=== PATIENT | female | born 1980 | race Hispanic/Latino ===

== ENCOUNTER 2018-07-13 12:36 | Emergency (ER) | payer SELFPAY ==
--- NOTE | 2018-07-13 14:39 | EDPHYS ---
Physician Documentation [facility] Name: Sandy Diggs Age: 37 yrs Sex: Female : 1980 Arrival Date: 07/13/2018 Time: 12:41 Bed 14 Private MD: None, None ED Physician Jesus Paz HPI: 07/13 14:36 This 37 yrs old Female presents to ER via Ambulatory with complaints of Sore khadijah Throat, Difficulty Swallowing. 14:36 The patient presents with sore throat. The patient describes throat pain as constant. khadijah Onset: The symptoms/episode began/occurred 1 day(s) ago. Severity of symptoms: At their worst the symptoms were moderate, in the emergency department the symptoms have improved, mildly. Modifying factors: The symptoms are alleviated by nothing, the symptoms are aggravated by swallowing, Patient's oral intake status: good. Associated signs and symptoms: The patient has no apparent associated signs or symptoms. The patient has not experienced similar symptoms in the past. 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 - Social history:: Smoking status: Patient/guardian denies using tobacco. - Ebola Screening: : Patient negative for fever greater than or equal to 101.5 degrees Fahrenheit, and additional compatible Ebola Virus Disease symptoms Patient denies exposure to infectious person Patient denies travel to an Ebola-affected area in the 21 days before illness onset No symptoms or risks identified at this time. ROS: 14:37 Constitutional: Negative for fever, chills, and weight loss, Eyes: Negative for injury, khdaijah pain, redness, and discharge, Neck: Negative for injury, pain, and swelling, Cardiovascular: Negative for chest pain, palpitations, and edema, Respiratory: Negative for shortness of breath, cough, wheezing, and pleuritic chest pain, Abdomen/GI: Negative for abdominal pain, nausea, vomiting, diarrhea, and constipation, Back: Negative for injury and pain, : Negative for injury, bleeding, discharge, and swelling, MS/Extremity: Negative for injury and deformity, Skin: Negative for injury, rash, and discoloration, Neuro: Negative for headache, weakness, numbness, tingling, and seizure, Psych: Negative for depression, anxiety, suicide ideation, homicidal ideation, and hallucinations, Allergy/Immunology: Negative for hives, rash, and allergies, Endocrine: Negative for neck swelling, polydipsia, polyuria, polyphagia, and marked weight changes, Hematologic/Lymphatic: Negative for swollen nodes, abnormal bleeding, and unusual bruising. 14:37 ENT: Positive for difficulty swallowing. Exam: 14:37 Constitutional: This is a well developed, well nourished patient who is awake, alert, khadijah and in no acute distress. Head/Face: Normocephalic, atraumatic. Eyes: Pupils equal round and reactive to light, extra-ocular motions intact. Lids and lashes normal. Conjunctiva and sclera are non-icteric and not injected. Cornea within normal limits. Periorbital areas with no swelling, redness, or edema. Neck: Trachea midline, no thyromegaly or masses palpated, and no cervical lymphadenopathy. Supple, full range of motion without nuchal rigidity, or vertebral point tenderness. No Meningismus. Chest/axilla: Normal chest wall appearance and motion. Nontender with no deformity. No lesions are appreciated. Cardiovascular: Regular rate and rhythm with a normal S1 and S2. No gallops, murmurs, or rubs. Normal PMI, no JVD. No pulse deficits. Respiratory: Lungs have equal breath sounds bilaterally, clear to auscultation and percussion. No rales, rhonchi or wheezes noted. No increased work of breathing, no retractions or nasal flaring. Abdomen/GI: Soft, non-tender, with normal bowel sounds. No distension or tympany. No guarding or rebound. No evidence of tenderness throughout. Back: No spinal tenderness. No costovertebral tenderness. Full range of motion. Skin: Warm, dry with normal turgor. Normal color with no rashes, no lesions, and no evidence of cellulitis. MS/ Extremity: Pulses equal, no cyanosis. Neurovascular intact. Full, normal range of motion. Neuro: Awake and alert, GCS 15, oriented to person, place, time, and situation. Cranial nerves II-XII grossly intact. Motor strength 5/5 in all extremities. Sensory grossly intact. Cerebellar exam normal. Normal gait. Psych: Awake, alert, with orientation to person, place and time. Behavior, mood, and affect are within normal limits. 14:37 ENT: Posterior pharynx: Airway: normal, no evidence of obstruction, Tonsils: are normal in appearance, Uvula: normal, midline, non-edematous, no erythema, swelling, is not appreciated, erythema, that is mild. Vital Signs: 12:59 BP 143 / 81; Pulse 84; Resp 16; Temp 97.4(TE); Pulse Ox 98% on R/A; Weight 80.29 kg; iw Height 5 ft. 5 in. (165.10 cm); Pain 7/10; 12:59 Body Mass Index 29.45 (80.29 kg, 165.10 cm) MDM: 14:15 Patient medically screened. [facility] 14:38 Data reviewed: vital signs, nurses notes, lab test result(s). [facility] 07/13 13:02 Order name: Strep; Complete Time: 14:35 07/13 13:44 Order name: Throat Culture EDMS Administered Medications: 14:53 Not Given (Patient Refused): Augmentin 875 mg PO once hj Disposition: 07/13/18 14:38 Discharged to Home. Impression: Acute pharyngitis. - Condition is Stable. - Discharge Instructions: Pharyngitis, Pharyngitis, [id number], Sore Throat, [id number]. - Prescriptions for Augmentin 875- 125 mg Oral Tablet - take 1 tablet by ORAL route every 12 hours for 10 days; 20 tablet. Ibuprofen 600 mg Oral Tablet - take 1 tablet by ORAL route every 8 hours As needed take with food; 21 tablet. Talia- D 12 Hour 60-120 mg Oral Tablet Sustained Release 12 hr - take 1 tablet by ORAL route every 12 hours As needed; 20 tablet. - Medication Reconciliation Form, Thank You Letter, Antibiotic Education, Prescription Opioid Use form. - Follow up: Private Physician; When: 2 - 3 days; Reason: Recheck today's complaints, Continuance of care, Re-evaluation by your physician. - Problem is new. - Symptoms have improved. Signatures: Dispatcher [employer] EDMS Jesus Paz MD MD cha Williams, Irene, RN RN Wilfredo Sood RN RN hj Corrections: (The following items were deleted from the chart) 14:54 14:38 07/13/2018 14:38 Discharged to Home. Impression: Acute pharyngitis. Condition is hj Stable. Forms are Medication Reconciliation Form, Thank You Letter, Antibiotic Education, Prescription Opioid Use. Follow up: Private Physician; When: 2 - 3 days; Reason: Recheck today's complaints, Continuance of care, Re-evaluation by your physician. Problem is new. Symptoms have improved. khadijah
--- NOTE | 2018-07-13 14:39 | ER ---
Nurse's Notes [facility] Name: Sandy Diggs Age: 37 yrs Sex: Female : 1980 Arrival Date: 07/13/2018 Time: 12:41 Bed 14 Private MD: None, None Diagnosis: Acute pharyngitis Presentation: 07/13 12:58 Presenting complaint: Patient states: woke up with pain in throat, difficulty iw swallowing and pain in right ear. Transition of care: patient was not received from another setting of care. Onset of symptoms was July 13, 2018. Risk Assessment: Do you want to hurt yourself or someone else? Patient reports no desire to harm self or others. Initial Sepsis Screen: Does the patient meet any 2 criteria? No. Patient's initial sepsis screen is negative. Does the patient have a suspected source of infection? No. Patient's initial sepsis screen is negative. Care prior to arrival: None. 12:58 Method Of Arrival: Ambulatory iw 12:58 Acuity: [place] 4 iw Triage Assessment: 14:19 General: Appears in no apparent distress. uncomfortable. hj 14:53 General: Behavior is calm, cooperative. 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 - Social history:: Smoking status: Patient/guardian denies using tobacco. - Ebola Screening: : Patient negative for fever greater than or equal to 101.5 degrees Fahrenheit, and additional compatible Ebola Virus Disease symptoms Patient denies exposure to infectious person Patient denies travel to an Ebola-affected area in the 21 days before illness onset No symptoms or risks identified at this time. Screenin:00 Abuse screen: Denies threats or abuse. Denies injuries from another. Nutritional hj screening: No deficits noted. Tuberculosis screening: No symptoms or risk factors identified. Fall Risk None identified. Assessment: 14:18 Pain: Complains of pain in throat. Respiratory: Airway is patent Respiratory effort is hj even, unlabored, Respiratory pattern is regular, symmetrical, Breath sounds are clear bilaterally. EENT: Throat. Vital Signs: 12:59 BP 143 / 81; Pulse 84; Resp 16; Temp 97.4(TE); Pulse Ox 98% on R/A; Weight 80.29 kg; iw Height 5 ft. 5 in. (165.10 cm); Pain 7/10; 12:59 Body Mass Index 29.45 (80.29 kg, 165.10 cm) ED Course: 12:41 Patient arrived in ED. mr 12:42 None, None is Private Physician. mr 12:59 Triage completed. iw 12:59 Arm band placed on. 14:06 Wilfredo Sood, RN is Primary Nurse. 14:15 Jesus Paz MD is Attending Physician. [facility] 14:19 Patient has correct armband on for positive identification. Bed in low position. Call hj light in reach. Side rails up X 1. 14:53 No provider procedures requiring assistance completed. Patient did not have IV access hj during this emergency room visit. Administered Medications: 14:53 Not Given (Patient Refused): Augmentin 875 mg PO once hj Outcome: 14:38 Discharge ordered by [facility] 14:53 Discharged to home ambulatory, with family. 14:53 Condition: good 14:53 Discharge instructions given to patient, Instructed on discharge instructions, follow up and referral plans. medication usage, Demonstrated understanding of instructions, follow-up care, medications, Prescriptions given X 3. 14:54 Patient left the ED. hj Signatures: Jesus Paz MD MD cha Rivera, Mary Deepthi Stout RN EVAN Wilfredo Sood RN RN
[2018-07-13 15:01] VITALS: BP 143/81; TEMP 97.4; O2SAT 98
== END 2018-07-13 14:54 | disposition home or self-care (01) ==
LOC: ER 12:36
DX: J02.9 Acute pharyngitis, unspecified (principal)
CPT/HCPCS: 87070; 87081; 99282